=== PATIENT | male | born 1945 | race Caucasian/White ===

== ENCOUNTER → 2018-11-18 | Outpatient (CLI) | payer OTHER ==
[~2018-11-18] MED LIST: CENTRUM SILVER1 EAC3 PO; FISH OIL 1,2001 EACH PO; PANTOPRAZOLE SO40 MG PO; SYMB160 INH
== END | disposition home or self-care (01) ==
LOC: NM 00:57
DX: R14.0 Abdominal distension (gaseous) (principal); K59.00 Constipation, unspecified; K30 Functional dyspepsia

== ENCOUNTER → 2019-02-05 | Day surgery (SDC) | payer OTHER ==
[~2019-02-05] VITALS: Ht 182.8 cm; Wt 113.4 kg
--- NOTE | ~2019-02-05 | O ---
[place], [place] OPERATIVE NOTE NAME: HELEN NOVAK UNIT #: [id number] ROOM: DOCTOR: DANE BUSTAMANTE MD BIRTHDATE: [birth year] DOS: 02/05/2019 INDICATIONS: The patient is a 73-year-old, who has presented with concern about colonic screening, undergoing investigation. PAST MEDICAL HISTORY: COPD. PAST SURGICAL HISTORY: Right leg and foot. ALLERGIES: None. SOCIAL HISTORY: He is a nonsmoker, drinking 3 beers per day. FAMILY HISTORY: Noncontributory. PROCEDURE: Today's procedure part of investigation is colonoscopy plus piecemeal polypectomy, rectal sessile polyps. PREMEDICATION: Propofol. SCOPE: Olympus forward-viewing colonoscope 10L video. REPORT: After putting the patient in left lateral position and application of lubricant to the scope, the scope was introduced. Thereafter, under direct visualization, advanced through the length of colon without difficulty. Severe diverticulosis of sigmoid colon appreciated. Base of the cecum explored, appendiceal orifice identified, and ileocecal valve was defined. The scope was gradually withdrawn from ascending, transverse, and descending colon. Two sessile polypoid lesions in rectal pouch with piecemeal polypectomy removed. Air was suctioned out. The patient was extubated, tolerated the procedure well. IMPRESSION: Severe diverticulosis, sigmoid colon; sessile colonic polyp, rectal pouch, status post piecemeal polypectomy. PLAN: High fiber diet. ACTIVITY: Ad-adan. FOLLOWUP: Followup routinely with you in office, p.r.n. visit with us in [facility]. Thank you very much indeed. [place], [place] OPERATIVE NOTE NAME: HELEN NOVAK Bill UNIT #: [id number] ROOM: DOCTOR: DANE BUSTAMANTE MD BIRTHDATE: [birth year] DANE BUSTAMANTE MD CM:OPRECORD:OPERATIVE NOTE [id number] QUOC BUSTAMANTE MD 02/05/19 [id number] interface
[2019-02-05 06:52] VITALS: BP 141/69
[2019-02-05 07:50] VITALS: BP 95/59
[2019-02-05 08:05] VITALS: BP 98/61
[2019-02-05 08:15] VITALS: BP 102/64
== END | disposition home or self-care (01) ==
LOC: SDC 01-31 12:30
DX: K62.1 Rectal polyp (principal); K57.30 Diverticulosis of large intestine without perforation or abscess without bleeding; K59.00 Constipation, unspecified; J44.9 Chronic obstructive pulmonary disease, unspecified; E66.9 Obesity, unspecified; M17.10 Unilateral primary osteoarthritis, unspecified knee; Z72.89 Other problems related to lifestyle; Z87.891 Personal history of nicotine dependence; Z79.899 Other long term (current) drug therapy; Z98.890 Other specified postprocedural states; Z68.33 Body mass index [BMI] 33.0-33.9, adult

== ENCOUNTER → 2021-01-05 | Outpatient (CLI) | payer OTHER | END | disposition home or self-care (01) | LOC: RAD 09:10 | PROVIDERS: ATTEND Internal Medicine | DX: M17.11 Unilateral primary osteoarthritis, right knee (principal); M25.761 Osteophyte, right knee; M25.762 Osteophyte, left knee; M25.861 Other specified joint disorders, right knee; M25.862 Other specified joint disorders, left knee ==

== ENCOUNTER 2023-10-27 18:30 | Emergency (ER) | payer OTHER ==
[~2023-10-27] VITALS: Wt 115.7 kg
[2023-10-27] MEDS ORDERED: Tdap Vaccine 0.5 ML SYR (Adult Vaccine) IM ONE (18:55)
[2023-10-27] MEDS ORDERED: ACETAMINOPHEN 325 MG TAB PO ONE (18:55)
[2023-10-27] MEDS ORDERED: Lidocaine Hydrochloride 30 ML VIAL IJ ONE (18:55)
[2023-10-27] MEDS ORDERED: ZETIA10 MG PO (18:57)
[2023-10-27] MEDS ORDERED: DULOXETINE HCL60 MG PO (18:57)
[2023-10-27] MEDS ORDERED: TRELEGY ELLIPT1 EACH INH (18:57)
[2023-10-27] MEDS ORDERED: PREGABALIN150 MG PO (18:58)
[2023-10-27] MEDS ORDERED: MELOXICAM15 MG PO (18:58)
[2023-10-27] MEDS ORDERED: LISINOPRIL5 MG PO (18:58)
[2023-10-27] MEDS ORDERED: SILVER NITRATE APPLICATOR 1 EACH APP T ONE ×2 (19:43→19:49)
[2023-10-27] MEDS ORDERED: LIDOCAINE HCL/EPINEPHRINE 50 ML VIAL ONE (19:49)
[2023-10-27 20:47] VITALS: BP 138/75
[2023-10-27] MEDS ORDERED: Amoxicillin/Clavulanate Pota 875 MG TAB PO ONE (22:00)
[2023-10-27] MEDS ORDERED: Bacitracin Zinc 14 GM TUBE T ONE (22:50)
[2023-10-27] MEDS ORDERED: AMOX-CLAV 875-1 EACH PO (22:55)
[2023-10-27] MEDS ORDERED: HYDROCODONE-AC1 EAC1 PO (23:23)
== END 2023-10-28 00:17 | disposition home or self-care (01) ==
LOC: ED 18:30
DX: S02.831A Fracture of medial orbital wall, right side, initial encounter for closed fracture (principal); S01.111A Laceration without foreign body of right eyelid and periocular area, initial encounter; S01.21XA Laceration without foreign body of nose, initial encounter; F17.220 Nicotine dependence, chewing tobacco, uncomplicated; Z79.899 Other long term (current) drug therapy; Z98.890 Other specified postprocedural states; W01.0XXA Fall on same level from slipping, tripping and stumbling without subsequent striking against object, initial encounter; Y93.89 Activity, other specified; Y92.64 Mine or pit as the place of occurrence of the external cause; Y99.8 Other external cause status

== ENCOUNTER 2023-11-08 16:03 | Emergency (ER) | payer OTHER ==
[~2023-11-08] VITALS: Ht 182.8 cm; Wt 115.7 kg
[~2023-11-08 16:03] MED LIST changes: +AMOX-CLAV 875-1 EACH PO; +DULOXETINE HCL60 MG PO; +HYDROCODONE-AC1 EAC1 PO; +LISINOPRIL5 MG PO; +MELOXICAM15 MG PO; +PREGABALIN150 MG PO; +TRELEGY ELLIPT1 EACH INH; +ZETIA10 MG PO
[2023-11-08 16:10] VITALS: BP 136/68
== END 2023-11-08 16:44 | disposition home or self-care (01) ==
LOC: ED 16:03
DX: S01.81XD Laceration without foreign body of other part of head, subsequent encounter (principal); Z98.890 Other specified postprocedural states; F17.220 Nicotine dependence, chewing tobacco, uncomplicated; X58.XXXD Exposure to other specified factors, subsequent encounter

== ENCOUNTER → 2024-03-21 | Outpatient (CLI) | payer OTHER | END | disposition home or self-care (01) | LOC: RAD 12:09 | PROVIDERS: ATTEND Internal Medicine | DX: M17.0 Bilateral primary osteoarthritis of knee (principal); M25.762 Osteophyte, left knee; M25.761 Osteophyte, right knee ==